=== PATIENT | female | born 1955 | race Caucasian/White ===

== ENCOUNTER 2020-05-02 21:45 | Emergency (ER) | payer OTHER ==
[2020-05-02] MEDS ORDERED: Acetaminophen/oxyCODONE 325-5 MG Tab PO ONE (22:30)
[2020-05-02] MEDS ORDERED: Ondansetron 4 MG Tab.DIS PO ONE (22:30)
--- NOTE | 2020-05-02 22:33 | EDM.PDOC ---
ED HPI GENERAL MEDICAL PROBLEM - General Chief Complaint: ENT Problem Stated Complaint: RIGHT SIDE PAIN & SWELLING OF FACE Time Seen by Provider: 05/02/20 22:28 Source of Information: Reports: Patient History Limitations: Reports: No Limitations - History of Present Illness INITIAL COMMENTS - FREE TEXT/NARRATIVE: 65-year-old female presents to the ED for evaluation of gradually worsening right hemifacial pain for over a month. Patient believes about 2-1/2 to 3 months ago she had her right upper first and second molar teeth removed by the dentist. Of note the patient lives in [place]. She was just here visiting over the . A little over a month ago she started developed discomfort in the right maxillary sinus area and pain coming from she believes t he second bicuspid right upper tooth. She took a 10-day course of Augmentin from her doctor before coming to the [facility] for the holidays. She states she did not get any better while on the medication but it is worse since she has finished the medication a week ago. Pain is now shooting up towards her right eye and right temporal scalp and right ear. No rashes developed in this area. Pain is constant and intermittently gets much more intense. She has been taking a combination of Aleve, Advil and Tylenol for pain almost on a every 4 hour basis for 2 weeks. Associated nausea tonight due to the pain. Onset: Gradual Onset Date: 04/03/20 Duration: Week(s):, Getting Worse Location: Reports: Face Quality: Reports: Ache (Diffuse gradually worsening right hemifacial pain for over a month.), Throbbing Severity: Moderate Improves with: Reports: None (7 out of 10) Worsens with: Reports: Other (So she clenches her teeth or strikes her teeth together upon chewing.) Context: Reports: Other (Annual occurrence over the last month.). Denies: Activity, Exercise, Lifting, Sick Contact, Trauma Associated Symptoms: Reports: No Other Symptoms, Loss of Appetite, Malaise, Nausea/Vomiting (Been nausea. No vomiting). Denies: Confusion, Chest Pain, Cough, cough w sputum, Diaphoresis, Fever/Chills, Headaches, Rash, Seizure, Shortness of Breath, Syncope Treatments CISSP: Reports: Other (see below) (None.) Right Face/Facial Pain Score (Numeric/FACES): 4 - Related Data Allergies Allergy/AdvReac Type Severity Reaction Status Date / Time No Known Allergies Allergy Verified 05/02/20 22:04 Home Meds: Home Meds Cefdinir [Omnicef] 300 mg PO BID #24 cap 05/03/20 [Rx] oxyCODONE HCl/Acetaminophen [Percocet 5-325 mg Tablet] 1 - 2 each PO Q4H PRN #18 tablet 05/03/20 [Rx] Past Medical History HEENT History: Reports: Other (See Below) (Dental extractions of right upper first and second molars 3 months ago) - Past Surgical History HEENT Surgical History: Reports: Oral Surgery, Other (See Below) Other HEENT Surgeries/Procedures: sinus surgery Social & Family History - Tobacco Use Tobacco Use Status *Q: Never Tobacco User - Living Situation & Occupation Social History Comment: Patient is just visiting the [place] area for the holidays. ED ROS ENT - Review of Systems Review Of Systems: See Below Constitutional: Reports: Malaise, Weakness, Fatigue, Decreased Appetite, Other. Denies: Fever, Chills, Weight Loss HEENT: Reports: Dental Pain (Full to try and eat. Pain right upper first and second bicuspid teeth.), Glasses Respiratory: Reports: No Symptoms Cardiovascular: Reports: No Symptoms Endocrine: Reports: Fatigue (Believes her disrupted sleep pattern due to the pain in her face for the last several days.) GI/Abdominal: Reports: No Symptoms : Reports: No Symptoms Musculoskeletal: Reports: No Symptoms Skin: Reports: No Symptoms Neurological: Reports: No Symptoms Psychiatric: Reports: No Symptoms Hematologic/Lymphatic: Reports: No Symptoms Immunologic: Reports: No Symptoms ED EXAM, ENT - Physical Exam Exam: See Below Exam Limited By: No Limitations General Appearance: Alert, WD/WN, Mild Distress, Other (Patient does appear to be in a good deal of discomfort. Temperature is 36.6 with a heart rate of 84 and sinus. Respiratory to 16 with O2 sats of 98% room air BP is 146/85.) Eye Exam: Bilateral Eye: Normal Inspection, PERRL Ears: Normal TMs Nose: Normal Inspection, Normal Mucousa, No Blood Mouth/Throat: Dental Pain (Mild dental pain on firm palpation of first and second bicuspids with tongue blade. No clinical evidence of gingival abscess.), Gum Swelling (Mild gingiva swelling adjacent to the first and second bicuspid teeth right upper maxilla.) Head: Atraumatic, Normocephalic, Facial Swelling (Mild right-sided facial swelling primarily over the right maxillary sinus appreciated. Marked tenderness well localized to the right), Sinus Tenderness ( maxillary sinus.) Neck: Normal Inspection, Supple, Non-Tender, Full Range of Motion. No: Carotid Bruit, Lymphadenopathy (L), Lymphadenopathy (R) Respiratory/Chest: No Respiratory Distress, Lungs Clear, Normal Breath Sounds, No Accessory Muscle Use Cardiovascular: Normal Peripheral Pulses, Regular Rate, Rhythm, No Edema, No Murmur, No Rub GI/Abdominal: Normal Bowel Sounds, Soft, Non-Tender, No Organomegaly, No Mass, Pelvis Stable, Rebound Extremities: Normal Inspection, Normal Range of Motion, Non-Tender, No Pedal Edema Neurological: Alert, Oriented, CN II-XII Intact, Normal Cognition, Normal Gait Psychiatric: Normal Affect, Normal Mood Skin: Warm, Dry, Intact, Normal Color Course - Vital Signs Last Recorded V/S: Last Vital Signs Temp 36.6 C 05/02/20 21:59 Pulse 84 05/02/20 21:59 Resp 16 05/02/20 21:59 BP 146/85 H 05/02/20 21:59 Pulse Ox 98 05/02/20 21:59 - Orders/Labs/Meds Orders: Active Orders 24 hr Category Date Time Status Maxillofacial w/o CM [Max Facial Sinus wo Cont] [CT] Exams 05/02/20 22:29 Taken Stat Meds: Medications Discontinued Medications Generic Name Dose Route Start Last Admin Trade Name Freq PRN Reason Stop Dose Admin Cefdinir 300 mg 05/03/20 01:19 05/03/20 01:39 Omnicef PO 05/03/20 01:20 300 mg ONETIME ONE Administration Ondansetron HCl 4 mg 05/02/20 22:30 05/02/20 22:39 Zofran Odt PO 05/02/20 22:31 4 mg ONETIME ONE Administration Oxycodone/Acetaminophen 1 tab 05/02/20 22:30 05/02/20 22:39 Percocet 325-5 Mg PO 05/02/20 22:31 1 tab ONETIME ONE Administration - Radiology Interpretation Free Text/Narrative:: 65-year-old female presents to the ED due to gradually worsening right hemifacial pain particular in the distribution of the right maxillary sinus for over a month. She reports about 3 months ago she had a right upper first and second molars resected or excised by the dentist. Started to develop some right maxillary sinus and gingiva pain about a month ago. Has taken a course of Augmentin 500/125 mg twice daily for 10 days finishing up about a week ago with no improvement of symptoms. Pain is gradually worsening and she been taking a combination of Advil, Aleve and Tylenol for pain. Pain is constant throbbing and occasionally sharp and stabbing. It will radiate up to the right pentecostal or scalp right thigh right ear and of course into the right maxillary sinus distribution. She cannot chew on that side at all. Plan CT of the maxillofa cial sinuses will be done. Been 1 Percocet 5/325 mg tablet for pain with Zofran 4 mg sublingual. - Re-Assessments/Exams Free Text/Narrative Re-Assessment/Exam: 05/03/20 01:00: Maxillofacial CT reveals orbits to be normal with globes unremarkable. No acute fractures are appreciated. Diffuse mucosal thickening of the right maxillary sinus is identified status post right medial antrectomy. Soft tissues unremarkable. Will be placed on Omnicef 300 mg twice daily for the next 12 days to clear up sinus infection. It does not appear to be related to a dental infection at this time. She will continue Motrin 600 mg every 6 hours to relieve inflammation and pain. Added Percocet tabs 5/325 mg strength 1 or 2 every 4-6 hours necessary for pain relief x18 tablets. Advised follow-up with her personal care physician when she arrives back home. Departure - Departure Time of Disposition: 01:21 Disposition: Home, Self-Care 01 Condition: Fair Clinical Impression: Facial pain Acute maxillary sinusitis Qualifiers: Recurrence: non-recurrent Qualified Code(s): J01.00 - Acute maxillary sinusitis, unspecified - Discharge Information *PRESCRIPTION DRUG MONITORING PROGRAM REVIEWED*: Not Applicable *COPY OF PRESCRIPTION DRUG MONITORING REPORT IN PATIENT [place]: Not Applicable Prescriptions: Cefdinir [Omnicef] 300 mg PO BID #24 cap oxyCODONE HCl/Acetaminophen [Percocet 5-325 mg Tablet] 1 - 2 each PO Q4H PRN #18 tablet PRN Reason: pain relief. Instructions: Sinusitis, Adult, [id number] Referrals: PCP,Not In Area [Primary Care Provider] - Forms: ED Department Discharge Additional Instructions: Evaluation in the emergency room today in regards to persistent pain in the distribution of the right maxillary sinus right hemiface for the last month. Remote removal or extraction of right first and second molar teeth. Recent dental examination revealed no evidence of dental infection according to the dentist and panoramic x-rays done at that time. In spite of a treatment with 10 days of Augmentin you continue to have pain in the right maxillary sinus worsening over the last week since off antibiotic. CT scan of the maxillofacial bones reveals evidence of a right maxillary sinus infection. There is diffuse inflammation of the entire sinus with thickening of the lining of the sinus. At this time there is no evidence of dental involvement although the root of the tooth does travel up to the floor the maxillary sinus. Treatment is antibiotic Omnicef 300 mg twice daily for the next 12 days to clear up infection. First ti me was provided in the ED. Continue Motrin 600 mg every 6 hours or Aleve 2 tablets every 8 hours to reduce pain and inflammation. May use Percocet tabs 5/325 mg strength 1 or 2 every 4-6 hours necessary for pain relief usually with some food to prevent nausea from the medication. Of note the antibiotics will usually take about 2-1/2 to 3 days to start to work well and pain should start to diminish. Follow-up with personal care physician when you get back home. Rarely these infections can become chronic and sometimes require drainage of the sinus by ear nose and throat surgeon. Sepsis Event Note (ED) - Evaluation Sepsis Screening Result: No Definite Risk - Focused Exam Vital Signs: Vital Signs Temp Pulse Resp BP Pulse Ox 05/02/20 21:59 36.6 C 84 16 146/85 H 98 - My Orders Last 24 Hours: My Active Orders 05/02/20 22:29 Maxillofacial w/o CM [Max Facial Sinus wo Cont] [CT] Stat - Assessment/Plan Last 24 Hours: My Active Orders 05/02/20 22:29 Maxillofacial w/o CM [Max Facial Sinus wo Cont] [CT] Stat
[2020-05-03] MEDS ORDERED: Cefdinir 300 MG Cap PO ONE (01:19)
--- NOTE | 2020-05-04 12:31 | CT ---
PROCEDURE INFORMATION: Exam: CT Maxillofacial Without Contrast Exam date and time: 05/02/2020 11:38 PM Age: 65 years old Clinical indication: Face pain; Patient HX: Right hemifacial pain for over a month worsening today. RT maxillary sinus pain and tenderness; Additional info: SX HX: 2 sinus surgeries few years ago TECHNIQUE: Imaging protocol: Computed tomography images of the face without contrast. COMPARISON: No relevant prior studies available. FINDINGS: Orbital cavity: Orbits are normal. Globes are unremarkable. Bones/joints: No acute fracture. Paranasal sinuses: The mild mucosal thickening of the right maxillary sinus. Status post right medial antrectomy. Soft tissues: Unremarkable. IMPRESSION: Mild mucosal thickening of the right maxillary sinus. Thank you for allowing us to participate in the care of your patient. Dictated and Authenticated by: Marielos France MD 05/03/2020 1:32 AM Central Time ([place] & [place]) MARIA LUISA
== END 2020-05-03 01:40 | disposition home or self-care (01) ==
LOC: JD.ED 21:45
DX: J01.00 Acute maxillary sinusitis, unspecified (principal)
CPT/HCPCS: 70486; 99283; A9270; 99284